=== PATIENT | female | born 1955 | race Caucasian/White ===

== ENCOUNTER 2016-04-27 07:33 | Observation (INO) | payer OTHER ==
[~2016-04-27 07:33] MED LIST: LIDO/EPI 1% **Not for Epidural 20 ML MDV ONE
[2016-04-27] MEDS ORDERED: LIDOCAINE 1% 5 ML SDV ONE (08:35)
[2016-04-27] MEDS ORDERED: DEXAMETHASONE 10 MG/ML VIAL ONE (08:38)
[2016-04-27] MEDS ORDERED: CEFAZOLIN 2 GM/DEXTROSE/100 ML BAG IV ONE (08:38)
[2016-04-27] MEDS ORDERED: LIDOCAINE 1% 5 ML SDV ID PRN (08:49)
[2016-04-27] MEDS ORDERED: LR 1,000 ML IV ONE (08:49)
[2016-04-27] MEDS ORDERED: MIDAZOLAM 2 MG/2 ML VIAL ONE (08:57)
[2016-04-27] MEDS ORDERED: DEXAMETHASONE 10 MG/ML VIAL IVP ONE (09:00)
[2016-04-27] MEDS ORDERED: ceFAZolin 2 GM/DEXTROSE 100 ML IV ONE (09:00)
[2016-04-27] MEDS ORDERED: fentaNYL 100 MCG/2 ML INJ ONE ×2 (09:06→11:58)
[2016-04-27] MEDS ORDERED: PROPOFOL/EMULSION 500 MG/50 ML BOTTLE IV ONE (09:06)
[2016-04-27] MEDS ORDERED: REMIFENTANIL HCL 1 MG VIAL ONE (09:06)
[2016-04-27] MEDS ORDERED: ONDANSETRON 4 MG/2 ML VIAL ONE (09:07)
[2016-04-27] MEDS ORDERED: LIDOCAINE 2% 100 MG/5 ML SYR IVP ONE (09:07)
[2016-04-27] MEDS ORDERED: DEXAMETHASONE 4 MG/ML VIAL ONE (09:07)
[2016-04-27] MEDS ORDERED: LIDOCAINE HCL 160 MG/4 ML LTA KIT TP ONE (09:11)
[2016-04-27] MEDS ORDERED: ONDANSETRON 4 MG/2 ML VIAL IVP PRN (11:49)
[2016-04-27] MEDS ORDERED: D5W 1/2 NS W/ 20 KCl/L 1,000 ML IV SCH (12:00)
[2016-04-27] MEDS: OXYCODONE/APAP 5/325 TAB PO PRN ×2 (14:36→21:49)
--- NOTE | 2016-04-27 16:57 | SOAPPROG ---
SOAP Progress Note Assessment/Plan: Patient s/p parotidectomy today. Doing well. O- dressing in palce. Facial nerves intact. Plan: Patient doing well. Plan for discharge tomorrow. 04/27/16 16:53 Objective: Vital Signs Temp Pulse Resp BP Pulse Ox 36.9 C 65 18 106/55 L 97 04/27/16 16:19 04/27/16 16:19 04/27/16 16:19 04/27/16 16:19 04/27/16 16:19 04/26/16 04/27/16 04/28/16 05:59 05:59 05:59 Intake Total 1000 Output Total 50 Balance 950 - Pending Discharge Pending Discharge Within 24 Hours: Yes Pending Discharge Date: 04/28/16 Pending Discharge Time: 11:00 ICD10 Worksheet Patient Problems: Problems Problem Status Diagnosed Parotid adenoma Acute - ICD10 Problem Qualifiers (1) Parotid adenoma
[2016-04-27 17:17] VITALS: RESP 16
[2016-04-28] MEDS: OXYCODONE/APAP 5/325 TAB PO PRN (07:37)
[2016-04-28 07:53] VITALS: BP 114/65; PULSE 64; TEMP 97.9; O2SAT 94
--- NOTE | 2016-05-01 14:02 | SOAPPROG ---
SOAP Progress Note Assessment/Plan: Assessment: 60 year old female POD 1 s/p left superficial parotidectomy. Doing well. Dressing changed, drain removed. - Prescription for Keflex/Percocet given - Follow-up next week for suture removal - D/c home this AM 05/01/16 14:00 Subjective: LATE ENTRY FROM 04/28/16. POD 1 s/p left superficial parotidectomy. Doing well. No complaints. No dysphagia/odynophagia. Objective: Vital Signs Temp Pulse Resp BP Pulse Ox 36.6 C 64 16 114/65 94 04/28/16 07:51 04/28/16 07:51 04/28/16 07:51 04/28/16 07:51 04/28/16 07:51 Facial nerve intact Oropharynx normal Drain removed, dressing replaced ICD10 Worksheet Patient Problems: Problems Problem Status Diagnosed Parotid adenoma Acute
== END 2016-04-28 10:39 | disposition home or self-care (01) ==
LOC: F3E 07:33
PROVIDERS: ADMIT Otolaryngology; ATTEND Otolaryngology
PROC: 0CB90ZX Excision of Left Parotid Gland, Open Approach, Diagnostic (ICD-10-PCS; principal; 2016-04-27 09:05)
DX: C79.89 Secondary malignant neoplasm of other specified sites (principal); Z85.820 Personal history of malignant melanoma of skin
CPT/HCPCS: 42415; G0378; J0690; J1100; J2001; J2250; J2405; J2704; J3010

== ENCOUNTER → 2016-06-24 | Outpatient (CLI) | payer OTHER ==
[~2016-06-24] MED LIST changes: +GADOBUTROL 10 ML VIAL IVP ONE; -LIDO/EPI 1% **Not for Epidural 20 ML MDV ONE
== END ==
LOC: FIMAGING 09:21
PROVIDERS: ATTEND Radiology Diagnostic Radiology
DX: C79.89 Secondary malignant neoplasm of other specified sites (principal)
CPT/HCPCS: A9585

== ENCOUNTER → 2016-08-31 | Outpatient (CLI) | payer OTHER | LOC: FIMAGING 14:02 | PROVIDERS: ATTEND Radiology Diagnostic Radiology | DX: C07 Malignant neoplasm of parotid gland (principal); J84.10 Pulmonary fibrosis, unspecified ==

== ENCOUNTER → 2016-09-02 | Outpatient (CLI) | payer OTHER | LOC: FIMAGING 13:14 | DX: K11.9 Disease of salivary gland, unspecified (principal); Z85.820 Personal history of malignant melanoma of skin | CPT/HCPCS: A9585 ==

== ENCOUNTER → 2016-11-16 | Outpatient (CLI) | payer OTHER | LOC: FIMAGING 18:52 | DX: Z85.820 Personal history of malignant melanoma of skin (principal); R93.8 Abnormal findings on diagnostic imaging of other specified body structures | CPT/HCPCS: A9585 ==

== ENCOUNTER → 2017-04-15 | Outpatient (CLI) | payer OTHER | LOC: BMCIMAGING 13:31 | PROVIDERS: ATTEND Emergency Medicine | DX: S62.351A Nondisplaced fracture of shaft of second metacarpal bone, left hand, initial encounter for closed fracture (principal) ==

== ENCOUNTER → 2017-05-14 | Outpatient (CLI) | payer OTHER ==
[~2017-05-14] MED LIST changes: -GADOBUTROL 10 ML VIAL IVP ONE; +IOPAMIDOL (ISOVUE-300) 100 ML BTL ONE
== END ==
LOC: FIMAGING 10:29
DX: C79.89 Secondary malignant neoplasm of other specified sites (principal); K59.00 Constipation, unspecified; R91.1 Solitary pulmonary nodule; Z85.820 Personal history of malignant melanoma of skin
CPT/HCPCS: Q9967

== ENCOUNTER → 2017-08-07 | Outpatient (CLI) | payer OTHER | LOC: FIMAGING 07:52 | DX: K76.89 Other specified diseases of liver (principal); K59.00 Constipation, unspecified; C43.9 Malignant melanoma of skin, unspecified; Z87.09 Personal history of other diseases of the respiratory system | CPT/HCPCS: Q9967 ==

== ENCOUNTER → 2017-08-10 | Outpatient (CLI) | payer OTHER ==
[~2017-08-10] MED LIST changes: +GADOBUTROL 10 ML VIAL IVP ONE; -IOPAMIDOL (ISOVUE-300) 100 ML BTL ONE
== END ==
LOC: FIMAGING 12:10
DX: Z08 Encounter for follow-up examination after completed treatment for malignant neoplasm (principal); Z85.841 Personal history of malignant neoplasm of brain
CPT/HCPCS: A9585

== ENCOUNTER → 2017-11-05 | Outpatient (CLI) | payer OTHER ==
[~2017-11-05] MED LIST changes: -GADOBUTROL 10 ML VIAL IVP ONE; +IOPAMIDOL (ISOVUE-300) 100 ML BTL ONE
== END ==
LOC: FIMAGING 13:18
DX: C43.9 Malignant melanoma of skin, unspecified (principal); C79.89 Secondary malignant neoplasm of other specified sites; R59.0 Localized enlarged lymph nodes; J18.9 Pneumonia, unspecified organism
CPT/HCPCS: Q9967

== ENCOUNTER 2017-11-08 12:42 | Observation (INO) | payer OTHER ==
--- NOTE | 2017-11-08 13:01 | EDPHY ---
H & P Time Seen by Provider: 11/08/17 12:59 HPI/ROS: CHIEF COMPLAINT: Fatigue and persistent chills HISTORY OF PRESENT ILLNESS: Diagnosed on 11/[address] with pneumonia. She has been on oral doxycycline for the last 48 hr. She presents with persistent fever and chills to 103 at home with severe lethargy and a just feeling exhausted. Her oncologist from [place] asked her to come and be evaluated for persistent fever and not feeling well. She did stop her chemotherapy on Sunday and she was taking Mekinist and Taflinar. Fatigue is severe. Not better worse with anything. REVIEW OF SYSTEMS: Eye: no change in vision ENT: no sore throat Cardiac: no chest pain or syncope Pulmonary: Not short of breath, no cough Abdomen: no vomiting, diarrhea, abdominal pain Musculoskeletal: no back pain Skin: no rash Neuro: no headache Constitutional: HPI : no urinary symptoms A comprehensive 10 point review of systems is otherwise negative aside from elements mentioned in the history of present illness. PAST MEDICAL HISTORY: Includes metastatic melanoma Social history: Nonsmoker General Appearance: Alert and conversant, cooperative. Eyes: No scleral icterus. ENT, Mouth: Normal mucous membranes. Respiratory: Right lower lung crackles and rhonchi. Cardiovascular: Regular rate and rhythm. Gastrointestinal: Abdomen is soft and non tender. Neurological: Alert, face symmetric, normal motor and sensory in extremities. Skin: Warm and dry, no rashes. Musculoskeletal: No peripheral edema. Psychiatric: Not agitated. Emergency Department course/MDM: Saturation noted at 90%, temperature 37.[address] reviewed shows infiltrates on 11/05. Now, appears to not be getting better with outpatient therapy, recommended hospital admission with extensive infiltratese., discussed with the patient who is in agreement. I reviewed the chest x-ray with her on the computer system. Chest x-ray, CBC and lactate for sepsis screening. Negative lactate, does not have SIRS criteria. Ceftriaxone 1 g IV and azithromycin 500 mg IV as well. Nasal cannula oxygen provided to get her saturations to the mid 90s. Smoking Status: Former smoker Constitutional: Initial Vital Signs Temperature (C) 37.1 C 11/08/17 12:49 Heart Rate 91 11/08/17 12:49 Respiratory Rate 16 11/08/17 12:49 Blood Pressure 123/71 H 11/08/17 12:49 O2 Sat (%) 90 L 11/08/17 12:49 O2 Delivery Mode Room Air Allergies/Adverse Reactions: No Known Allergies Allergy (Unverified 04/20/16 13:08) Home Medications: Medication Instructions Recorded Cholecalciferol Vit D3 [Vitamin D3 1,000 units PO DAILY 11/08/17 (*)] Cyanocobalamin [Vitamin B12 (*)] 1,000 mcg PO DAILY 11/08/17 Dabrafenib Mesylate [Tafinlar] 100 mg PO BID@11/08/17 Doxycycline Hyclate [Vibramycin 100 mg PO BID 11/08/17 100 MG (*)] Ibuprofen [Motrin (*)] 200 - 400 mg PO Q4HRS PRN 11/08/17 Lifitegrast [Xiidra] 1 each EACHEYE BID 11/08/17 Mekinist 0.5mg Tablet 1.5 mg PO DAILY10 11/08/17 Medical Decision Making - Diagnostics Imaging Results: Imaging Impressions Chest X-Ray 11/08/17 13:32 Impression: Bilateral airspace opacities, similar to the prior study 4 days ago. Findings probably represent either multifocal pneumonia, less likely metastases. Recommend follow-up until radiographic clearance. Imaging: I viewed and interpreted images myself Differential Diagnosis: Differential for fever considered including but not limited to chemotherapy side effect, pneumonia, UTI, ENT infection Consult/Admit Bed Type: [place] [id number] - Data Points Laboratory Results: Laboratory Results 11/08/17 13:50 11/08/17 13:50 11/08/17 11/08/17 11/08/17 13:50 13:50 13:50 WBC 9.34 10^3/uL 10^3/uL (3.80-9.50) RBC 4.09 10^6/uL L 10^6/uL (4.18-5.33) Hgb 11.5 g/dL L g/dL (12.6-16.3) Hct 35.0 % L % (38.0-47.0) MCV 85.6 fL fL (81.5-99.8) MCH 28.1 pg pg (27.9-34.1) MCHC 32.9 g/dL g/dL (32.4-36.7) RDW 13.6 % % (11.5-15.2) Plt Count 527 10^3/uL H 10^3/uL (150-400) MPV 8.1 fL L fL (8.7-11.7) Neut % (Auto) 76.2 % H % (39.3-74.2) Lymph % (Auto) 13.0 % L % (15.0-45.0) [place] % (Auto) 8.1 % % (4.5-13.0) Eos % (Auto) 1.9 % % (0.6-7.6) Baso % (Auto) 0.5 % % (0.3-1.7) Nucleat RBC Rel Count 0.0 % % (0.0-0.2) Absolute Neuts (auto) 7.11 10^3/uL H 10^3/uL (1.70-6.50) Absolute Lymphs (auto) 1.21 10^3/uL 10^3/uL (1.00-3.00) Absolute Monos (auto) 0.76 10^3/uL 10^3/uL (0.30-0.80) Absolute Eos (auto) 0.18 10^3/uL 10^3/uL (0.03-0.40) Absolute Basos (auto) 0.05 10^3/uL 10^3/uL (0.02-0.10) Absolute Nucleated RBC 0.00 10^3/uL 10^3/uL (0-0.01) Immature Gran % 0.3 % % (0.0-1.1) Immature Gran # 0.03 10^3/uL 10^3/uL (0.00-0.10) PT 14.5 SEC SEC (12.0-15.0) INR 1.11 (0.83-1.16) APTT 30.1 SEC SEC (23.0-38.0) VBG Lactic Acid Sodium 139 mEq/L mEq/L (135-145) Potassium 3.6 mEq/L mEq/L (3.3-5.0) Chloride 100 mEq/L mEq/L (97-110) Carbon Dioxide 27 mEq/l mEq/l (22-31) Anion Gap 12 mEq/L mEq/L (8-16) BUN 15 mg/dL mg/dL (7-23) Creatinine 0.7 mg/dL mg/dL (0.6-1.0) Estimated GFR > 60 Glucose 130 mg/dL H mg/dL (70-100) Calcium 9.1 mg/dL mg/dL (8.5-10.4) Total Bilirubin 0.5 mg/dL mg/dL (0.1-1.4) 11/08/17 13:50 WBC RBC Hgb Hct MCV MCH MCHC RDW Plt Count MPV Neut % (Auto) Lymph % (Auto) [place] % (Auto) Eos % (Auto) Baso % (Auto) Nucleat RBC Rel Count Absolute Neuts (auto) Absolute Lymphs (auto) Absolute Monos (auto) Absolute Eos (auto) Absolute Basos (auto) Absolute Nucleated RBC Immature Gran % Immature Gran # PT INR APTT VBG Lactic Acid 1.9 mmol/L mmol/L (0.7-2.1) Sodium Potassium Chloride Carbon Dioxide Anion Gap BUN Creatinine Estimated GFR Glucose Calcium Total Bilirubin Medications Given: Discontinued Medications Sodium Chloride (Ns) 1,900 mls @ 3,800 mls/hr 30 ml/kg infuse over 30 min ( 1900 ml) IV EDNOW ONE PRN Reason: Protocol Stop: 11/08/17 14:01 Last Admin: 11/08/17 14:08 Dose: 1,900 mls Ceftriaxone Sodium/Dextrose (Rocephin 1 Gm (Premix)) 50 mls @ 100 mls/hr IV EDNOW ONE PRN Reason: Protocol Stop: 11/08/17 14:53 Last Admin: 11/08/17 14:50 Dose: 50 mls Departure - Departure Disposition: [facility] Inpatient Acute Clinical Impression: Pneumonia Qualifiers: Pneumonia type: due to unspecified organism Laterality: bilateral Lung location : unspecified part of lung Qualified Code(s): J18.9 - Pneumonia, unspecified organism Condition: Fair
[2017-11-08] MEDS ORDERED: NS 1,900 ML IV ONE (13:32)
[2017-11-08 14:08] LABS: PLATELET COUNT 527 10^3/uL (150-400)
[2017-11-08 14:17] LABS: INR 1.11 (0.83-1.16); PROTIME(PATIENT) 14.5 SEC (12.0-15.0)
[2017-11-08] MEDS ORDERED: AZITHROMYCIN IV 500 MG in D5W 250 ML IV ONE (14:24)
[2017-11-08] MEDS ORDERED: ONDANSETRON 4 MG/2 ML VIAL IVP PRN (14:29)
[2017-11-08] MEDS ORDERED: ACETAMINOPHEN 325 MG TAB PO PRN (14:29)
[2017-11-08] MEDS ORDERED: ONDANSETRON DISINTEGRATING 4 MG TAB PO PRN (14:29)
--- NOTE | 2017-11-08 15:08 | PDGENHP ---
History and Physical - Chief Complaint fever - History of Present Illness 61yo F with metastatic malignant melanoma on therapy presents with fevers and fatigue. She typically gets fevers every 4-5 weeks that are attributed to her chemotherapy. She developed a fever on Sunday and stopped taking her chemotherapy. She had a scheduled chest CT on Sunday (11/06) for surveillance of her cancer; this showed multifocal groundglass opacities with air bronchograms. She was started on doxycycline by her oncologist and had taken 4 doses; however, she continued to have a fever up to 104F with significant fatigue and anorexia so decided to come in. Reports mild non-productive cough and shortness of breath. She also noticed a rash on her back that is itchy but not spreading. No recent travel, hospitalizations, or antibiotics. In the ED, she was satting 90% on room air. A repeat CXR demonstrated multifocal lung infiltrates. She is being admitted for failure of outpatient antibiotics. Case discussed with ED physician Dr Reagan Jay. Previous records and recent CT scan of chest reviewed. History Information - Allergies/Home Medication List Allergies/Adverse Reactions: No Known Allergies Allergy (Unverified 04/20/16 13:08) Home Medications: Cholecalciferol Vit D3 [Vitamin D3 (*)] 1,000 units PO DAILY 11/08/17 [Last Taken Unknown] Cyanocobalamin [Vitamin B12 (*)] 1,000 mcg PO DAILY 11/08/17 [Last Taken Unknown ] Dabrafenib Mesylate [Tafinlar] 100 mg PO BID@11/08/17 [Last Taken 11/02/17 ] Doxycycline Hyclate [Vibramycin 100 MG (*)] 100 mg PO BID 11/08/17 [Last Taken 11/08/17 09:00] Ibuprofen [Motrin (*)] 200 - 400 mg PO Q4HRS PRN 11/08/17 [Last Taken 11/08/17 07:00] Lifitegrast [Xiidra] 1 each EACHEYE BID 11/08/17 [Last Taken Unknown] Mekinist 0.5mg Tablet 1.5 mg PO DAILY10 11/08/17 [Last Taken 11/02/17] I have personally reviewed and updated: family history, medical history, social history, surgical history - Past Medical History Additional medical history: metastatic malignant melanoma (L parotid) - Surgical History Additional surgical history: L parotidectomy - Family History Positive for: non-pertinent - Social History Smoking Status: Former smoker Alcohol Use: None Drug Use: Marijuana (1x/month) Additional social history: lives alone, has daughter in [place] Review of Systems Review of Systems: ROS: 10pt was reviewed & negative except for what was stated in HPI & below Physical Exam Physical Exam: Temp Pulse Resp BP Pulse Ox 37 C 84 16 130/88 H 96 11/08/17 14:51 11/08/17 14:51 11/08/17 14:51 11/08/17 14:51 11/08/17 14:51 Constitutional: no apparent distress, appears nourished, not in pain Eyes: PERRL, anicteric sclera, EOMI Ears, Nose, Mouth, Throat: moist mucous membranes, hearing normal, ears appear normal, no oral mucosal ulcers Cardiovascular: regular rate and rhythym, no murmur, rub, or gallop, No edema Respiratory: reduced air movement, rhonchi (R>L predominantly at bases), No expiratory wheeze Gastrointestinal: normoactive bowel sounds, soft, non-tender abdomen, no palpable masses Skin: rash (scattered non-palpable, blanchable rash across back) Neurologic: AAOx3, sensation intact bilaterally Psychiatric: interacting appropriately, not anxious, not encephalopathic, thought process linear Lab Data & Imaging Review 11/08/17 13:50 11/08/17 13:50 WBC 9.34 10^3/uL (3.80-9.50) 11/08/17 13:50 RBC 4.09 10^6/uL (4.18-5.33) L 11/08/17 13:50 Hgb 11.5 g/dL (12.6-16.3) L 11/08/17 13:50 Hct 35.0 % (38.0-47.0) L 11/08/17 13:50 MCV 85.6 fL (81.5-99.8) 11/08/17 13:50 MCH 28.1 pg (27.9-34.1) 11/08/17 13:50 MCHC 32.9 g/dL (32.4-36.7) 11/08/17 13:50 RDW 13.6 % (11.5-15.2) 11/08/17 13:50 Plt Count 527 10^3/uL (150-400) H 11/08/17 13:50 MPV 8.1 fL (8.7-11.7) L 11/08/17 13:50 Neut % (Auto) 76.2 % (39.3-74.2) H 11/08/17 13:50 Lymph % (Auto) 13.0 % (15.0-45.0) L 11/08/17 13:50 [place] % (Auto) 8.1 % (4.5-13.0) 11/08/17 13:50 Eos % (Auto) 1.9 % (0.6-7.6) 11/08/17 13:50 Baso % (Auto) 0.5 % (0.3-1.7) 11/08/17 13:50 Nucleat RBC Rel Count 0.0 % (0.0-0.2) 11/08/17 13:50 Absolute Neuts (auto) 7.11 10^3/uL (1.70-6.50) H 11/08/17 13:50 Absolute Lymphs (auto) 1.21 10^3/uL (1.00-3.00) 11/08/17 13:50 Absolute Monos (auto) 0.76 10^3/uL (0.30-0.80) 11/08/17 13:50 Absolute Eos (auto) 0.18 10^3/uL (0.03-0.40) 11/08/17 13:50 Absolute Basos (auto) 0.05 10^3/uL (0.02-0.10) 11/08/17 13:50 Absolute Nucleated RBC 0.00 10^3/uL (0-0.01) 11/08/17 13:50 Immature Gran % 0.3 % (0.0-1.1) 11/08/17 13:50 Immature Gran # 0.03 10^3/uL (0.00-0.10) 11/08/17 13:50 PT 14.5 SEC (12.0-15.0) 11/08/17 13:50 INR 1.11 (0.83-1.16) 11/08/17 13:50 APTT 30.1 SEC (23.0-38.0) 11/08/17 13:50 VBG Lactic Acid 1.9 mmol/L (0.7-2.1) 11/08/17 13:50 Sodium 139 mEq/L (135-145) 11/08/17 13:50 Potassium 3.6 mEq/L (3.3-5.0) 11/08/17 13:50 Chloride 100 mEq/L (97-110) 11/08/17 13:50 Carbon Dioxide 27 mEq/l (22-31) 11/08/17 13:50 Anion Gap 12 mEq/L (8-16) 11/08/17 13:50 BUN 15 mg/dL (7-23) 11/08/17 13:50 Creatinine 0.7 mg/dL (0.6-1.0) 11/08/17 13:50 Estimated GFR > 60 11/08/17 13:50 Glucose 130 mg/dL (70-100) H 11/08/17 13:50 Calcium 9.1 mg/dL (8.5-10.4) 11/08/17 13:50 Total Bilirubin 0.5 mg/dL (0.1-1.4) 11/08/17 13:50 Chest X-Ray results: infiltrate (multifocal and diffuse) Assessment & Plan Assessment: 61yo F with metastatic malignant melanoma on therapy and recent chest CT demonstrating multifocal opacities who has not improved on oral antibiotics. Plan: #Multifocal pneumonia: Demonstrated on CT. Mildly symptomatic. High fevers and rash are somewhat suspicious for viral process. - Ceftriaxone, azithromycin - F/u blood cultures - Sputum culture (if able) - Check procalcitonin - Check Legionella urine antigen - Will need follow up CT in 4-6 weeks to ensure resolution of pneumonia. If not improving, concern for pulmonary mets #Rash: Located on back, no mucous involvement. Query viral exanthem vs drug eruption. - Monitor for now, unlikely to respond to steroids #Metastatic malignant melanoma: Followed by Dr Lewis at [facility]. Has h /o L parotidectomy due to mets. Gets [id number] MRI of head/neck and [id number] CT abd /pelvis for surveillance. - Holding chemotherapy VTE ppx: LMWH Diet: regular Code: Full Dispo: Admit under observation for management of pneumonia with IV antibiotics.
[2017-11-08] MEDS: IBUPROFEN 200 MG TAB PO PRN (17:55)
[2017-11-08] MEDS: NON-FORMULARY NEW DRUG (Lifitegrast [Xiidra] 1 EACH) EACHEYE SCH (21:17)
[2017-11-09] MEDS ORDERED: diphenhydrAMINE 25 MG CAP PO PRN (02:36)
[2017-11-09 04:47] LABS: PLATELET COUNT 489 10^3/uL (150-400)
[2017-11-09] MEDS: AZITHROMYCIN 250 MG TAB PO SCH (08:27)
[2017-11-09] MEDS: NON-FORMULARY NEW DRUG (Lifitegrast [Xiidra] 1 EACH) EACHEYE SCH ×2 (08:29→20:05)
[2017-11-09] MEDS: IBUPROFEN 200 MG TAB PO PRN ×2 (08:36→20:03)
[2017-11-09] MEDS: ENOXAPARIN 40 MG/0.4 ML SYR SC SCH (08:42)
--- NOTE | 2017-11-09 08:50 | HOSPPROG ---
Hospitalist Progress Note Assessment/Plan: #Multifocal infiltrates: on CT 11/05 (personally reviewed) New since scan in July. Failed outpatient doxycycline. Will transition to LQ tomorrow #Fever: PNA. Resp PCR negative, blood cultures pending. Urine strep/Legionella pending #Metastatic melanoma: Dr Lewis is primary Oncologist at [facility]; receives surveillance scans q3 months (I contacted her today with plan) #Rash: viral? Benadryl cream #Diet: regular #Disp: cont inpatient admission for IV abx, will DC tomorrow if clinically improved Subjective: feeling little better. Goes through cycle "fevers/fatigue" Objective: Vital Signs Temp Pulse Resp BP Pulse Ox 37.5 C 79 12 112/67 91 L 11/09/17 07:25 11/09/17 07:25 11/09/17 07:25 11/09/17 07:25 11/09/17 07:25 Microbiology 11/08/17 15:15 Respiratory Panel (PCR) - Final Nasal, Sinus - Swab No Organism Detected Laboratory Results 11/09/17 04:20 11/09/17 04:20 11/08/17 11/09/17 11/10/17 05:59 05:59 05:59 Intake Total 1285 Balance 1285 PT 14.5 SEC (12.0-15.0) 11/08/17 13:50 INR 1.11 (0.83-1.16) 11/08/17 13:50 - Time Spent With Patient Time Spent with Patient: greater than 35 minutes Time Spent with Patient: Greater than 35 minutes spent on this patients care, greater than 50% of time spent counseling, educating, and coordinating care regarding the above mentioned plan. - Physical Exam Constitutional: no apparent distress Eyes: PERRL Ears, Nose, Mouth, Throat: moist mucous membranes, hearing normal Cardiovascular: regular rate and rhythym, no murmur, rub, or gallop Respiratory: no respiratory distress, No rhonchi Gastrointestinal: normoactive bowel sounds Genitourinary: no bladder fullness Skin: warm Musculoskeletal: full muscle strength Neurologic: AAOx3, CN II-XII Intact Psychiatric: interacting appropriately ICD10 Worksheet Patient Problems: Problems Problem Status Onset Pneumonia Acute Parotid adenoma Acute
--- NOTE | 2017-11-09 13:04 | ASMTCMCOM ---
CM Note CM Note Notes: Pt with metastatic melanoma admitted for PNA. Pt receives oncology care at [facility]. Pt's DC needs unclear. Plan: TBD Date Signed: 11/09/2017 01:03 PM Electronically Signed By:Iza Gutierrez LCSW
[2017-11-09] MEDS: DIPHENHYDRAMINE CREAM TP PRN ×2 (15:27→20:04)
--- NOTE | 2017-11-09 17:23 | PDHOMEO2F ---
Home Oxygen Face to Face Home Orders: I certify that a physician or a nurse practitioner or physician's laboratory chemical assistant has had a [id number] encounter with this patient on the date of this order due to the diagnosis listed, which relates to the primary reason the patient requires home oxygen. Alternative treatments have been tried, or considered, and deemed ineffective. It is anticipated that supplemental oxygen will result in improvement with treatment. Home oxygen qualifying diagnosis: pneumonia Home oxygen secondary diagnosis: acute hypoxemic resp failure SpO2 on room air (%): 86 Frequency of home oxygen needed: continuous Home oxygen liters per minute: 2 Home oxygen delivery device: nasal cannula Concentrator: Yes E-tanks for mobility and back up: Yes If ordering portable O2, is the patient mobile in the home?: Yes I certify that, based on these findings, the home oxygen is medically necessary for this patient for the following length of time. Length of time home oxygen needed: 99 years
[2017-11-10] MEDS: NON-FORMULARY NEW DRUG (Lifitegrast [Xiidra] 1 EACH) EACHEYE SCH (06:03)
[2017-11-10] MEDS: DIPHENHYDRAMINE CREAM TP PRN (06:04)
[2017-11-10] MEDS: AZITHROMYCIN 250 MG TAB PO SCH (10:13)
[2017-11-10] MEDS: ENOXAPARIN 40 MG/0.4 ML SYR SC SCH (10:19)
[2017-11-10 12:18] VITALS: BP 111/69
--- NOTE | 2017-11-10 13:22 | GDS ---
[f rep st] DISCHARGE SUMMARY DISCHARGE DIAGNOSES: 1. Acute hypoxic respiratory failure. 2. Multilobar pneumonia, community-acquired. 3. Metastatic melanoma. 4. Rash. HISTORY OF PRESENT ILLNESS: A pleasant 61-year-old female with metastatic melanoma, followed by Dr. Lewis at [facility], presenting with fever and fatigue. She typically gets fev ers every 4-5 weeks that are attributed to her chemotherapy. She had a fever on Sunday and stopped taking her chemotherapy. She had a scheduled CT chest on Sunday, 11/06, for cancer surveillance an d showed multifocal ground-glass opacities with air bronchograms. She was started on doxycycline by her oncologist. She had taken 4 doses, but still continued to have fevers at home up to 104 with fat igue. She also had decreased p.o. intake. HOSPITAL COURSE BY PROBLEM: 1. Acute hypoxic respiratory failure: Secondary to acute pneumonia. She will be discharged on oxyg en. 2. Multifocal pneumonia. She was treated with IV ceftriaxone and azithromycin with improvement here . Will transition to cefdinir and azithromycin at discharge as the patient did not want to take levo floxacin with risk of tendinitis. 3. Metastatic melanoma. Resume chemotherapy per her oncologist, whom she will see on November 13. 4. Rash: This involved her back and upper thigh. May be secondary to the doxycycline. She has rel ief with Benadryl. There was no mucosal involvement or evidence of infection. DISPOSITION: Patient is stable for discharge home with her daughters. PHYSICAL EXAM: VITAL SIGNS: Today, temperature 37.2, blood pressure 114/65, heart rate in the 70s, respirations 12, 86% on room air, 91% on 1 L. GENERAL: She appears brighter, in no acute distress. HEENT: PERRLA. Moist mucous membranes. CV: Regular rate and rhythm. LUNGS: Crackles, left base. No wheezing. ABDOMEN: Soft, nontender, nondistended. Positive bowel sounds. : No Watson. MUS CULOSKELETAL: 5/5. NEURO: 2 through 12 intact. PSYCH: Alert and oriented x3. FOLLOWUP: 1. Dr. Lewis, oncology at [facility]. 2. Primary care physician. NEW MEDICATIONS: 1. Azithromycin 250 mg daily. 2. Cefdinir 300 mg b.i.d. Time spent on discharge: Greater than 30 minutes coordinating care, counseling patient and daughter on return precautions and followup. /[id number]/MODL
--- NOTE | 2017-11-10 15:06 | ASMTCMCOM ---
CM Note CM Note Notes: Pt to DC today with no needs. Date Signed: 11/10/2017 03:06 PM Electronically Signed By:Iza Gutierrez LCSW
== END 2017-11-10 15:29 | disposition home or self-care (01) ==
LOC: INTOOBSV 14:29 → F1N 15:23
PROVIDERS: ADMIT Internal Medicine; ATTEND Internal Medicine
DX: J18.1 Lobar pneumonia, unspecified organism (principal); J96.01 Acute respiratory failure with hypoxia; C43.9 Malignant melanoma of skin, unspecified; C79.9 Secondary malignant neoplasm of unspecified site; R21 Rash and other nonspecific skin eruption; Z87.891 Personal history of nicotine dependence; Z66 Do not resuscitate
CPT/HCPCS: 71046; 96361; 96365; 96375; 96376; 99285; G0378; 87449-90; J0456; J0696; J1650

== ENCOUNTER → 2017-11-14 | Outpatient (CLI) | payer OTHER ==
[~2017-11-14] MED LIST changes: +GADOBUTROL 10 ML VIAL IVP ONE; -IOPAMIDOL (ISOVUE-300) 100 ML BTL ONE
== END ==
LOC: FIMAGING 11:18
DX: Z08 Encounter for follow-up examination after completed treatment for malignant neoplasm (principal); C08.9 Malignant neoplasm of major salivary gland, unspecified; M47.892 Other spondylosis, cervical region
CPT/HCPCS: A9585

== ENCOUNTER → 2018-02-25 | Outpatient (CLI) | payer OTHER ==
[~2018-02-25] MED LIST changes: +IOPAMIDOL (ISOVUE-300) 100 ML BTL ONE
== END ==
LOC: FIMAGING 06:57
DX: C43.9 Malignant melanoma of skin, unspecified (principal); R59.0 Localized enlarged lymph nodes; R91.1 Solitary pulmonary nodule
CPT/HCPCS: 82565-PO; A9585; Q9967

== ENCOUNTER → 2018-04-29 | Outpatient (CLI) | payer OTHER | LOC: FIMAGING 14:03 | PROVIDERS: ATTEND Internal Medicine | DX: Z12.31 Encounter for screening mammogram for malignant neoplasm of breast (principal) ==

== ENCOUNTER → 2018-06-05 | Outpatient (CLI) | payer OTHER | LOC: FIMAGING 08:54 | DX: C79.9 Secondary malignant neoplasm of unspecified site (principal) ==